=== PATIENT | female | born 1975 ===

== ENCOUNTER 2017-05-25 20:19 | Emergency (ER) | payer OTHER ==
[~2017-05-25] VITALS: Ht 172.7 cm; Wt 74.8 kg
[~2017-05-25 20:19] MED LIST: AUGMENTIN; AUGMENTIN1 TAB.SR1; FLEXERIL10 MG PO; KETO10TA2 PO; MILLIPRED DP5 M1 PO; MOTRIN800 MG; ORPH100T PO; SEPTRA 80/400 T1 TAB; SINGULAIR10 MG; ULTRAM50 MG
== END 2017-05-25 22:38 | disposition home or self-care (01) ==
LOC: ER 20:19
DX: J11.1 Influenza due to unidentified influenza virus with other respiratory manifestations (principal); J10.1 Influenza due to other identified influenza virus with other respiratory manifestations

== ENCOUNTER 2020-03-07 08:20 | Outpatient (CLI) | payer OTHER | END 2020-03-07 08:44 | disposition home or self-care (01) | LOC: OFIC 805 08:20 | PROVIDERS: ATTEND Otolaryngology Otology & Neurotology | DX: K21.9 Gastro-esophageal reflux disease without esophagitis (principal); J02.8 Acute pharyngitis due to other specified organisms; H92.01 Otalgia, right ear; K12.0 Recurrent oral aphthae ==